=== PATIENT | female | born 1955 | race Caucasian/White ===

== ENCOUNTER → 2018-08-02 | Day surgery (SDC) | payer MEDICARE, OTHER ==
[~2018-08-02] MED LIST: CALC-128 PO; CHOL10003 PO; GLYCOPYRROLATE 1 MG/5 ML SYRINGE. ONE; HYDR-2762 PO; HYDR12.58 PO; HYDROmorphone 2 MG/ML VIAL IV PRN; IV RINGERS,LACTATED 1000ML 1,000 ML IV SCH; LIDOCAINE 1% PF 2 ML VIAL. ID PRN; LIDOCAINE 1% PF 2 ML VIAL. ONE; MAGN400C PO; MORPHINE SULFATE 2 MG/ML VIAL. IV PRN; OMEP40CA5 PO; ONDANSETRON PF 4 MG/2 ML VIAL. IV PRN; PROAIR HFA8.5 GM IH; PROCHLORPERAZINE 10 MG/2 ML VIAL. IV PRN; PROPOFOL 20 ML IV ONE; PYRI100T PO; RALO60TA PO; ZINC50TA2 PO; fentaNYL PF VIAL 100 MCG/2 ML VIAL IV PRN
[2018-08-02 09:01] VITALS: BP 132/89
--- NOTE | 2018-08-02 21:49 | CONS ---
DATE OF CONSULTATION: 08/02/2018 REASON FOR CONSULTATION: Colorectal screening, history of tubulovillous polyps. HISTORY OF PRESENT ILLNESS: A 63-year-old female with past medical history significant for GERD, hypertension, hyperlipidemia, history of colonic polyps, COPD, is seen for interval colonoscopy. Bowel habits have been regular without diarrhea or constipation. There has been no melena and/or hematochezia. Family history is unrevealing for colon polyps or colon cancer. Her previous tubulovillous polyp was in the rectum and surveillance exam is recommended at this time. PAST MEDICAL HISTORY: COPD, gastritis, history of colonic polyps, hyperlipidemia, hypertension. ALLERGIES: INCLUDE IODINE, SULFA, CORTISONE. MEDICATIONS: Include albuterol, vitamin D3, hydrochlorothiazide, magnesium, omeprazole, pyridoxine, Evista and zinc. SOCIAL HISTORY: She is a former smoker, nondrinker. FAMILY HISTORY: Significant for breast cancer with her mother, diabetes with her sibling, CVAs with an aunt and uncle, hypertension with father ____. PAST SURGICAL HISTORY: Bladder suspension, tubal ligation, tonsillectomy, appendectomy, lysis of adhesions, hysterectomy. REVIEW OF SYSTEMS: Per records. PHYSICAL EXAMINATION: GENERAL: Reveals a well-nourished, well-developed female who is alert, cooperative, in no acute distress. VITAL SIGNS: Temperature is 98, pulse 86, respirations 20. HEENT: Normocephalic and atraumatic head. Pupils and extraocular muscles are not tested. Sclerae anicteric. NECK: Supple. LUNGS: With decreased breath sounds anteriorly. CARDIOVASCULAR: Reveals S1, S2 without S3, S4 or appreciable murmur. ABDOMEN: Soft abdomen, normal bowel sounds. No appreciable splenomegaly. EXTREMITIES: Reveals no cyanosis, clubbing or edema. IMPRESSION AND PLAN: Surveillance colonoscopy with history of advanced pathology, tubulovillous adenoma is recommended. Procedure is recommended at this time. Risks and benefits of the procedure including risk of hemorrhage and perforation discussed. The patient is willing to proceed at this time. LIVIER ROMO MD DR: DAYANA/geneva JOB#: [id number] / [id number]
--- NOTE | 2018-08-05 16:08 | PATHOLOGY ---
[facility] Accession Number: [id number] . 01 Material submitted: . SIGMOID POLYP . 01 Clinical history: . Polyps . 02 Diagnosis: Colon biopsy, sigmoid polyp: - Small segments of superficial colonic epithelium showing hyperplastic changes consistent with hyperplastic polyp. (JPM:aayush; 08/05/20180 QMS/08/05/2018 . 02 Comment: There are no adenomatous changes or evidence of malignancy. . 02 Electronically signed: . Dariusz Rodas MD, Pathologist NPI- [id number] . 01 Gross description: . Received in formalin labeled "Skinny, Jigna, sigmoid polyp," is a single segment of harris soft tissue measuring 0.2 cm in maximum dimension. The specimen is entirely submitted in cassette A1. (TSD; 08/02/2018) TOB/TOB . 02 Pathologist provided ICD-10: K63.5 . 02 CPT . 124993 Specimen Comment: A courtesy copy of this report has been sent to Specimen Comment: [phone], . Specimen Comment: Report sent to Performed at: 01 [facility] [address] [facility] [address], [place] [id number] MD Elroy Yusuf MD Phone: [phone] Performed at: 02 [facility] [address] [place], [place] [id number] MD Dariusz Rodas MD Phone: [phone]
== END | disposition home or self-care (01) ==
LOC: ENDOS 07:00
PROVIDERS: ATTEND Internal Medicine Gastroenterology
DX: Z12.11 Encounter for screening for malignant neoplasm of colon (principal); K64.0 First degree hemorrhoids; K63.5 Polyp of colon; I10 Essential (primary) hypertension; E78.5 Hyperlipidemia, unspecified; J44.9 Chronic obstructive pulmonary disease, unspecified; K21.9 Gastro-esophageal reflux disease without esophagitis; Z86.010 Personal history of colon polyps; Z88.2 Allergy status to sulfonamides; Z88.8 Allergy status to other drugs, medicaments and biological substances; Z79.899 Other long term (current) drug therapy; Z87.891 Personal history of nicotine dependence; Z83.3 Family history of diabetes mellitus; Z80.3 Family history of malignant neoplasm of breast; Z82.3 Family history of stroke; Z82.49 Family history of ischemic heart disease and other diseases of the circulatory system; Z90.49 Acquired absence of other specified parts of digestive tract; Z90.710 Acquired absence of both cervix and uterus; Z98.890 Other specified postprocedural states
CPT/HCPCS: 45380; 88305; J2704; J3490

== ENCOUNTER → 2019-09-25 | Outpatient (CLI) | payer MEDICARE, OTHER ==
[2018-08-02 09:01] VITALS: BP 132/89
[~2019-09-25] MED LIST changes: +ALBU2.5V8 IH; -GLYCOPYRROLATE 1 MG/5 ML SYRINGE. ONE; -HYDR-2762 PO; +HYDR-2765 PO; -HYDROmorphone 2 MG/ML VIAL IV PRN; -IV RINGERS,LACTATED 1000ML 1,000 ML IV SCH; -LIDOCAINE 1% PF 2 ML VIAL. ID PRN; -LIDOCAINE 1% PF 2 ML VIAL. ONE; -MORPHINE SULFATE 2 MG/ML VIAL. IV PRN; +OMEP40CA45 PO; -OMEP40CA5 PO; -ONDANSETRON PF 4 MG/2 ML VIAL. IV PRN; -PROAIR HFA8.5 GM IH; -PROCHLORPERAZINE 10 MG/2 ML VIAL. IV PRN; -PROPOFOL 20 ML IV ONE; -PYRI100T PO; +PYRI100T2 PO; -fentaNYL PF VIAL 100 MCG/2 ML VIAL IV PRN
--- NOTE | 2019-09-26 12:13 | RAD ---
DATE: September 25, 2019 EXAM: MAMMO GIN SCREENING BILATERAL HISTORY: Screening study. COMPARISON: 2018 This study was interpreted with the benefit of Computerized Aided Detection (CAD). 2-D digital mammographic views of both breasts were performed in the CC and MLO projections. 3-D digital tomosynthesis images of both breasts were performed in the CC and MLO projections and reviewed on a computer workstation. FINDINGS: Breast Density: FATTY The breast parenchyma is primarily fatty replaced. Breast parenchyma level density A.. Left breast nodularity is stable. There are no new dominant suspicious masses, suspicious microcalcifications or evidence of architectural distortion. IMPRESSION: No mammographic indicators for malignancy. BI-RADS CATEGORY: 2 BENIGN FINDING RECOMMENDED FOLLOW-UP: 12M 12 MONTH FOLLOW-UP PQRS compliance statement: Patient information was entered into a reminder system with a target due date September 26, 2020 for the next mammogram. Mammography is a sensitive method for finding small breast cancers, but it does not detect them all and is not a substitute for careful clinical examination. A negative mammogram does not negate a clinically suspicious finding and should not result in delay in biopsying a clinically suspicious abnormality. "Our facility is accredited by the [employer] Mammography Program." The patient's breast density may affect the ability of mammography to detect breast cancer. There are 4 categories of breast density, A, B, C and D. Breast density A means that most of the breast tissue is replaced with adipose tissue and therefore is not dense. Breast density B means that the breast tissue is mildly dense and scattered. Breast density C means that the breast tissue is heterogeneously dense. Breast density D means that the breast tissue is very dense. Breast densities especially C and D may decrease the sensitivity of mammography to detect breast cancer. Therefore, the patient may benefit from 3-D breast mammography (3D breast tomography) as a part of their screening mammogram. Insurance may or may not pay for this additional imaging. The patient's breast density based on today's mammogram is category A.
== END | disposition home or self-care (01) ==
LOC: MAMMO 14:23
PROVIDERS: ATTEND Family Medicine
DX: Z12.31 Encounter for screening mammogram for malignant neoplasm of breast (principal)
CPT/HCPCS: 77063; 77067

== ENCOUNTER → 2020-05-12 | Outpatient (CLI) | payer MEDICARE, OTHER ==
[2018-08-02 09:01] VITALS: BP 132/89
[~2020-05-12] MED LIST changes: -PYRI100T2 PO; +PYRI100T9 PO; +ZINC50TA10 PO; -ZINC50TA2 PO
--- NOTE | 2020-05-12 12:37 | RAD ---
CT LOW DOSE LUNG SCREENING INDICATION: History of tobacco abuse. COMPARISON STUDY: None. TECHNIQUE: Unenhanced axial images were obtained through the lungs and upper abdomen using low dose technique. Coronal and sagittal multiplanar reformatted images were also obtained. PQRS compliance statement: One or more of the following individualized dose reduction techniques were utilized for this examination: 1. Automated exposure control 2. Adjustment of the mA and/or kV according to patient size 3. Use of iterative reconstruction technique FINDINGS: Lung Nodules: There are a couple of small indeterminate nodules with artist representative nodules as follows: Right upper lobe 3 mm nodules (series 2 image 68). Calcified pulmonary granulomas. Lungs and Airways: No pulmonary mass or consolidation. Normal central airways. Pleura: Normal pleural spaces. Heart and Mediastinum: The visualized portions of the thyroid gland are normal in size and attenuation. No axillary or supraclavicular lymphadenopathy. No mediastinal, hilar or retrocrural lymphadenopathy. Normal cardiac size. No pericardial effusion. Coronary artery atherosclerotic disease. The great vessels of the thorax are normal. Abdomen: The visualized abdominal organs demonstrate no abnormality. Bones and Soft Tissues: Degenerative changes of the spine. 1 cm left breast nodule, better characterized on mammogram 09/25/2019. IMPRESSION: 1. There are a couple of small indeterminate pulmonary nodules measuring up to 3 mm. Lung-RADS Category: 2 Management Recommendation: Follow up low-dose chest CT in one year. 2. Coronary artery atherosclerotic disease. Electronically signed by: Colin Gonzales MD (05/12/2020 12:33 PM) [id number]
== END | disposition home or self-care (01) ==
LOC: CT 10:52
PROVIDERS: ATTEND Family Medicine
DX: Z12.2 Encounter for screening for malignant neoplasm of respiratory organs (principal); N63.0 Unspecified lump in unspecified breast; I25.10 Atherosclerotic heart disease of native coronary artery without angina pectoris; M47.9 Spondylosis, unspecified; Z87.891 Personal history of nicotine dependence
CPT/HCPCS: G0297

== ENCOUNTER → 2020-10-04 | Outpatient (CLI) | payer MEDICARE, OTHER ==
[2018-08-02 09:01] VITALS: BP 132/89
--- NOTE | 2020-10-06 10:09 | RAD ---
DATE: 10/04/2020 2:19 PM EXAM: MAMMO GIN SCREENING BILATERAL HISTORY: Screening COMPARISON: 09/25/2019 Bilateral CC and MLO views of the breasts were performed. Bilateral breast tomosynthesis was performed in CC and MLO projections. This study was interpreted with the benefit of Computerized Aided Detection (CAD). FINDINGS: Breast Density: FATTY The Breast Parenchyma is primarily fatty replaced. Breast parenchyma level density A. No suspicious masses, microcalcifications or architectural distortion is present to suggest malignancy in either breast. The visualized axillae are unremarkable. IMPRESSION: No mammographic evidence of malignancy. BI-RADS CATEGORY: 1 NEGATIVE RECOMMENDED FOLLOW-UP: 12M 12 MONTH FOLLOW-UP Annual screening mammography is recommended, unless clinically indicated sooner based on symptoms or change in physical exam. PQRS compliance statement: Patient information was entered into a reminder system with a target due date for the next mammogram. Mammography is a sensitive method for finding small breast cancers, but it does not detect them all and is not a substitute for careful clinical examination. A negative mammogram does not negate a clinically suspicious finding and should not result in delay in biopsying a clinically suspicious abnormality. "Our facility is accredited by the [employer] Mammography Program."
== END ==
LOC: MAMMO 14:05
PROVIDERS: ATTEND Family Medicine
DX: Z12.31 Encounter for screening mammogram for malignant neoplasm of breast (principal)
CPT/HCPCS: 77063; 77067

== ENCOUNTER → 2021-06-08 | Outpatient (CLI) | payer MEDICARE, OTHER ==
[2018-08-02 09:01] VITALS: BP 132/89
[~2021-06-08] MED LIST changes: -OMEP40CA45 PO; +OMEP40CA7 PO
--- NOTE | 2021-06-08 13:09 | RAD ---
EXAM: CT CHEST WITHOUT CONTRAST (LDCT LUNG CANCER SCREENING). HISTORY: Risk factors for pulmonary malignancy. Cigarette smoking. Family history of lung cancer. TECHNIQUE: CT of the chest was performed without intravenous contrast using a low-dose lung screening protocol. Findings analysis is based on ACR Lung-RADS v1.1. *One or more of the following individual ized dose reduction techniques were utilized for this examination: 1. Automated exposure control. 2. Adjustment of the mA and/or kV according to patient size. 3. Use of iterative reconstruction technique. COMPARISON: 05/12/2020 FINDINGS: The heart is normal in size. There is calcified atherosclerotic plaque involving the naik ry arteries. There is stable nonspecific soft tissue within the anterior mediastinum likely due to tr jasmin pericardial fluid. No pathologically enlarged mediastinal or hilar lymph node is seen. There are calcified right hilar and bilateral pulmonary granulomas. There is no pneumothorax or pleural effusio n. There is a 3 mm nodule within the lateral right upper lobe (series 2, image 65). There is a 2 mm p leural-based nodule within the lateral right upper lobe (series 2, image 86). There is a 2 mm nodule within the anterior right upper lobe (series 2, image 103). There is a 2 mm nodule with adjacent 4 mm nodule likely due to volume averaging of a pulmonary vessel within the right lower lobe indices seri es 2, image 203 and 197). There is no acute finding involving the upper abdomen or osseous structures . There is a 9 mm nodular density within the lateral left breast. IMPRESSION: 1. Tiny benign-appearing right-sided pulmonary nodules measuring up to 4 mm, stable allowing for diff erences in imaging and measurement technique. Lung RADS category 2: Annual [address] is r ecommended. 2. Slight increase in anterior mediastinal density due to trace pericardial fluid or lymphatic in scott ology. Attention at the time of follow-up can be performed to confirm stability or resolution. 3. Stable nodular density within the lateral left breast. The year of stability favors benignity. Cor relate with prior mammography findings. Electronically signed by: Melissa Carpio MD (06/08/2021 1:06 PM) [id number]
== END ==
LOC: CT 12:34
PROVIDERS: ATTEND Family Medicine
DX: Z12.2 Encounter for screening for malignant neoplasm of respiratory organs (principal); N63.20 Unspecified lump in the left breast, unspecified quadrant; I25.10 Atherosclerotic heart disease of native coronary artery without angina pectoris; J84.10 Pulmonary fibrosis, unspecified; R91.1 Solitary pulmonary nodule; Z87.891 Personal history of nicotine dependence
CPT/HCPCS: 71271

== ENCOUNTER → 2022-01-02 | Outpatient (CLI) | payer MEDICARE, OTHER ==
[2018-08-02 09:01] VITALS: BP 132/89
--- NOTE | 2022-01-02 12:26 | RAD ---
Bilateral digital screening 2-D and 3-D (digital breast tomosynthesis) mammogram: Reason for examination: Routine screening. Comparison: Mammograms from 10/04/2020, 09/25/2019, and 09/12/2018. Interpretation was made with the benefit of CAD. FINDINGS: Breast density: Category B. There are scattered areas of fibroglandular density. No suspicious breast mass, malignant appearing calcifications, or architectural distortion is seen. T here is unchanged oval circumscribed mass in the left retroareolar region and stable focal asymmetry in the 3:00 position the left breast at middle depth. IMPRESSION: No evidence of malignancy. Assessment: BI-RADS 2. Benign findings. Recommendation: Routine screening mammograms. The patient will receive a letter with the results in the mail. Patient information will be entered i nto the mammography reminder system with a target recall date for the next mammogram. A reminder milagro er will be generated. Electronically signed by: Janel Arias MD (01/02/2022 12:23 PM) [id number]
== END ==
LOC: MAMMO 10:13
PROVIDERS: ATTEND Family Medicine
DX: Z12.31 Encounter for screening mammogram for malignant neoplasm of breast (principal)
CPT/HCPCS: 77063; 77067